=== PATIENT | female | born 1995 | race Caucasian/White ===

== ENCOUNTER 2016-11-30 22:50 | Emergency (ER) | payer OTHER ==
[2016-11-30 22:55] VITALS: RESP 16
[2016-11-30] MEDS ORDERED: AMOXICILLIN/CLAVULANATE POT 875/125 MG TAB PO ONE (23:15)
--- NOTE | 2016-11-30 23:16 | EDPHY ---
H & P Time Seen by Provider: 11/30/16 23:00 HPI/ROS: CHIEF COMPLAINT: Dog bite face HISTORY OF PRESENT ILLNESS: 21-year-old female presents to the emergency department with her mother after she was bit by her own dog in the face. The patient states that she was at home just prior to arrival playing with her dog and she got very close to the dog's mouth and the dog subsequently bit her near her right eye. The dog is up-to-date on rabies vaccine. The patient's tetanus shot is current. She denies any visual changes. Denies headache. Denies any other trauma. ROS: Denies double vision, blurry vision, headache, neck pain. Past Medical/Surgical History: Negative Social History: Single Smoking Status: Never smoked Physical Exam: On examination the patient has multiple lacerations noted to the right eyebrow, just above the right eyebrow as well as just lateral to her right eye. The right eye reveals no conjunctival injection. Her pupils are equal and round reactive. Extraocular motions are all intact. No palpable bony tenderness. Teeth are in good repair. Neck is supple without lymphadenopathy. Constitutional: Initial Vital Signs Temperature (C) 36.9 C 11/30/16 22:52 Heart Rate 97 11/30/16 22:52 Respiratory Rate 16 11/30/16 22:52 Blood Pressure 125/67 H 11/30/16 22:52 O2 Sat (%) 95 11/30/16 22:52 O2 Delivery Mode Room Air Allergies/Adverse Reactions: No Known Allergies Allergy (Unverified 11/30/16 22:55) Home Medications: Medication Instructions Recorded Amitriptyline 100 mg 11/30/16 Amoxicillin/Clavulanate Pot 875 mg PO BID #10 tab 11/30/16 [Augmentin 875 mg tab] Zofran 11/30/16 MDM/Departure - MDM Procedures: Laceration repair #1. Verbal consent was obtained from the patient. The 1 cm laceration on the right cheek below right eye was anesthetized using 1% lidocaine with epinephrine. The wound was irrigated with saline, draped and explored to its base with a gloved finger. There were no deep structures involved. The wound was repaired with 6 0 Prolene, 3 sutures. The wound repair was simple. The procedure was performed by myself. Laceration repair #2. Verbal consent was obtained from the patient. The 1 cm laceration on the right eyebrow was anesthetized using 1% lidocaine with epinephrine. The wound was irrigated with saline, draped and explored to its base with a gloved finger. There were no deep structures involved. The wound was repaired with 6 0 Prolene , 3 sutures. The wound repair was simple. The procedure was performed by myself. Laceration repair #3. Verbal consent was obtained from the patient. The 1.5 cm laceration on the right cheek lateral to right eye was anesthetized using 1% lidocaine with epinephrine. The wound was irrigated with saline, draped and explored to its base with a gloved finger. There were no deep structures involved. The wound was repaired with 6 0 Prolene, 4 sutures. The wound repair was simple. The procedure was performed by myself. Laceration repair #4. Verbal consent was obtained from the patient. The 1 cm laceration on the right eyebrow was anesthetized using 1% lidocaine with epinephrine. The wound was irrigated with saline, draped and explored to its base with a gloved finger. There were no deep structures involved. The wound was repaired with 6 0 Prolene , 3 sutures. The wound repair was simple. The procedure was performed by myself. Laceration repair #5. Verbal consent was obtained from the patient. The less than 0.5 cm laceration on the right upper eyelid was anesthetized using 1% lidocaine with epinephrine. The wound was irrigated with saline, draped and explored to its base with a gloved finger. There were no deep structures involved. The wound was repaired with 6 0 Prolene, 1 simple interrupted suture. The wound repair was simple. The procedure was performed by myself. Laceration repair #6. Verbal consent was obtained from the patient. The 3 cm laceration on the right eyebrow was anesthetized using 1% lidocaine with epinephrine. The wound was irrigated with saline, draped and explored to its base with a gloved finger. There were no deep structures involved. The wound was repaired with 6 0 Prolene , 8 sutures. The wound repair was complex. The procedure was performed by myself. Medications Given: Discontinued Medications Amoxicillin/Clavulanate Potassium (Augmentin 875mg) 875 mg PO [facility]NOW ONE PRN Reason: Protocol Stop: 11/30/16 23:16 Last Admin: 11/30/16 23:41 Dose: 875 mg ED Course/Re-evaluation: 21-year-old female presents with multiple lacerations from dog bite on her face. I did discuss with the patient the risks of infection associated with these wounds however because they are in a cosmetic area and have good blood supply, I recommended closure of the wounds. She will be started on Augmentin. Patient was given wound care precautions. Patient is aware the wounds will scar. I did encourage sunscreen to help minimize scarring which may be applied once the wounds have completely healed and sutures have been removed in 5 days. [facility] has been contacted as talking with the patient in the room. - Depart Disposition: Home, Routine, Self-Care Clinical Impression: Dog bite of multiple sites Condition: Good Instructions: Animal Bite (ED), Acute Wounds (ED) Additional Instructions: Augmentin 875 mg twice daily for 5 days to prevent infection. Wound Care Follow-Up: Removal of sutures in 5 days. Suture removal is complimentary in uncomplicated cases. Infection or abnormal findings would require reevaluation by the MD. In that case, you may be billed. Return if you notice any signs or symptoms of infection such as redness, swelling, increased pain, fever, purulent drainage. Prescriptions: Amoxicillin/Clavulanate Pot [Augmentin 875 mg tab] 875 mg PO BID #10 tab Referrals: Harleen Ceja MD [[facility] Primary Care Provider] - 2-3 days, if not improved ( Primary care provider)
[2016-12-01] MEDS ORDERED: IBUPROFEN 600 MG TAB PO ONE (00:15)
[2016-12-01 00:32] VITALS: BP 113/75; PULSE 81; TEMP 98.6; O2SAT 94
== END 2016-12-01 00:32 | disposition home or self-care (01) ==
PROC: 08QNXZZ Repair Right Upper Eyelid, External Approach (ICD-10-PCS; principal; 2016-11-30)
PROC: 0HQ1XZZ Repair Face Skin, External Approach (ICD-10-PCS; principal; 2016-11-30)
DX: S01.151A Open bite of right eyelid and periocular area, initial encounter (principal); W54.0XXA Bitten by dog, initial encounter; Y92.009 Unspecified place in unspecified non-institutional (private) residence as the place of occurrence of the external cause; Y99.8 Other external cause status